=== PATIENT | male | born 1970 | race American Indian/Alaskan Native ===

== ENCOUNTER 2018-07-11 08:21 | Emergency (ER) | payer SELFPAY ==
[2018-07-11 08:29] VITALS: BP 177/75
[2018-07-11] MEDS ORDERED: NORCO 5/325 PO ONE (09:48)
--- NOTE | 2018-07-11 10:37 | Emergency Department Report ---
Abscess Boil HPI - HPI Chief Complaint: Skin/Abscess/Foreign Body Stated Complaint: RT BUTTOCK BOIL/PAIN Time Seen by Provider: 07/11/18 09:19 Duration: 5 Days Location: Sacral/Pilonidal Severity: Moderate History: Yes Pain, No Fever, No Purulent Drainage, No Numbness, No Foreign Body, No Previous History, No Insect Bite HPI: 47-year-old male presents to rectal pain for the past 6 days. Patient states that he felt a bump on his right buttock area has gotten bigger and has gotten difficult to sit down. Home Medications: Previous Rx's Medication Instructions Recorded Last Taken Type Clindamycin [Clindamycin CAP] 300 mg PO BID #14 cap 07/11/18 Unknown Rx HYDROcodone/ACETAMINOPHEN [[place] 1 each PO Q6H #10 tablet 07/11/18 Unknown Rx 5-325 Tablet] Sulfamethoxazole/Trimethoprim 1 each PO BID #14 tablet 07/11/18 Unknown Rx [Bactrim DS TAB] Allergies/Adverse Reactions: Allergies Allergy/AdvReac Type Severity Reaction Status Date / Time No Known Allergies Allergy Verified 07/11/18 08:24 ED Review of Systems ROS: Stated complaint: RT BUTTOCK BOIL/PAIN Other details as noted in HPI Comment: All other systems reviewed and negative ED Past Medical Hx - Medications Home Medications: Home Medications Medication Instructions Recorded Confirmed Last Taken Type Clindamycin [Clindamycin CAP] 300 mg PO BID #14 cap 07/11/18 Unknown Rx HYDROcodone/ACETAMINOPHEN [[place] 1 each PO Q6H #10 tablet 07/11/18 Unknown Rx 5-325 Tablet] Sulfamethoxazole/Trimethoprim 1 each PO BID #14 tablet 07/11/18 Unknown Rx [Bactrim DS TAB] ED Abscess Boil Physical Exam - Exam General: Vital signs noted. No distress. Alert and acting appropriately. Size: >5 cm Exam: Yes Tenderness, Yes Fluctuance, Yes Normal Neurologic Exam, Yes Normal Circulation, No Surrounding Cellulites/Erythema, No Lymphangitis, No Crepitation, No Heart Murmur I & D Note - I & D Note I & D Note: Patient positioned appropriately, 15cc lidocaine with/without epinephrine was used as a local anesthetic. #11 blade scalpal used for single incision. Additional local anesthetic injected into surrounding viable tissue prior to blunt dissection of loculated adhesions. Copius drainage of pus was suctioned. Wound packed with iodoform gauze. Procedure tolerated without complications. Wound dressed with sterile 4x4 guaze and paper tape. Pt tolerated procedure well. ED Course Vital Signs 07/11/18 08:27 Temperature 98.2 F Pulse Rate 74 Respiratory 20 Rate Blood Pressure 177/75 [Right] O2 Sat by Pulse 100 Oximetry Critical care attestation.: If time is entered above; I have spent that time in minutes in the direct care of this critically ill patient, excluding procedure time. ED Medical Decision Making - Medical Decision Making 47-year-old male presents with pilonidal abscess. See I& D notes. Patient tolerated procedure well. Discussed the patient's to return to the ED in 2-3 days for packing removal and wound check. Discussed to take antibiotics as prescribed. Vital signs are normal patient is in no acute distress ED Disposition Clinical Impression: Abscess, Pilonidal abscess Disposition: TO HOME OR SELFCARE Is pt being admited?: No Does the pt Need Aspirin: No Condition: Stable Instructions: Abscess Incision and Drainage (ED), Abscess (ED) Additional Instructions: Make sure to follow up with the primary care physician as discussed. Take all your medications as you've been prescribed. Return in 3 days for incision and drainage packing removal. If you have any worsening symptoms or develop new symptoms please return to ED immediately. Prescriptions: Sulfamethoxazole/Trimethoprim [Bactrim DS TAB] 1 each PO BID #14 tablet Clindamycin [Clindamycin CAP] 300 mg PO BID #14 cap HYDROcodone/ACETAMINOPHEN [[place] 5-325 Tablet] 1 each PO Q6H #10 tablet Referrals: [facility] MD FLORENCIO [Primary Care Provider] - 3-5 Days Forms: Accompanied Note, Work/School Release Form(ED) Time of Disposition: 12:03
[2018-07-11] MEDS ORDERED: XYLOCAINE 1% 20 mL INFILTRATI NR (10:45)
== END 2018-07-11 12:28 | disposition home or self-care (01) ==
LOC: ED 08:21
DX: L05.01 Pilonidal cyst with abscess (principal)
CPT/HCPCS: 99282

== ENCOUNTER 2018-07-14 12:42 | Emergency (ER) | payer SELFPAY ==
[2018-07-14 12:49] VITALS: BP 138/87
--- NOTE | 2018-07-14 13:40 | Emergency Department Report ---
Blank Doc - Documentation Documentation: 47 y/o male comes in today for wound recheck. Wound in on patient gluteus. No fevers.
--- NOTE | 2018-07-14 15:03 | Emergency Department Report ---
Suture/Staple Removal - [facility] Chief Complaint: Laceration/Recheck/Suture Stated Complaint: FOLLOW UP Time Seen by Provider: 07/14/18 14:39 When Sutures or [place] Placed: 3 Wound Location: pilonidal,right buttocks check ED Review of Systems ROS: Stated complaint: FOLLOW UP Other details as noted in HPI Comment: All other systems reviewed and negative ED Past Medical Hx - Past Medical History Hx Diabetes: Yes - Surgical History Past Surgical History?: Yes Hx Open Heart Surgery: Yes - Social History Smoking Status: Current Some Day Smoker Substance Use Type: None - Medications Home Medications: Home Medications Medication Instructions Recorded Confirmed Last Taken Type HYDROcodone/ACETAMINOPHEN [[place] 1 each PO Q6H #10 tablet 07/11/18 Unknown Rx 5-325 Tablet] Clindamycin [Clindamycin CAP] 300 mg PO BID #14 cap 07/14/18 Unknown Rx Ibuprofen [Motrin] 800 mg PO Q8HR #30 tablet 07/14/18 Unknown Rx Sulfamethoxazole/Trimethoprim 1 each PO BID #14 tablet 07/14/18 Unknown Rx [Bactrim DS TAB] Suture Removal Exam - Exam General: Vital signs noted. No distress. Alert and acting appropriately. Wound: Yes Tenderness, No Pathologic Erythema, No Drainage, No Pus, No Wound Dehiscence Other Systems: All other systems reviewed and are unremarkable. ED Course Vital Signs 07/14/18 12:47 Temperature 97.9 F Pulse Rate 74 Respiratory 18 Rate Blood Pressure 138/87 O2 Sat by Pulse 99 Oximetry ED Recheck MDM - Differential Diagnosis Wound Recheck - Medical Decision Making 47-year-old male presents with wound check and packing removal. Packing was removed without any problems. Discussed the patient's taken his antibiotics. Patient states he was unable to pick it up and needs another copy of his prescriptions. Follow-up with primary care physician discussed. wound looks well, healing appropriately. Critical care attestation.: If time is entered above; I have spent that time in minutes in the direct care of this critically ill patient, excluding procedure time. ED Disposition Clinical Impression: Wound check, abscess Disposition: DC-[id number] TO HOME OR SELFCARE Is pt being admited?: No Does the pt Need Aspirin: No Condition: Stable Instructions: Acute Wound Care (ED) Additional Instructions: DischargeMake sure to follow up with the primary care physician as discussed. Take all your medications as you've been prescribed. If you have any worsening symptoms or develop new symptoms please return to ED immediately. Prescriptions: Sulfamethoxazole/Trimethoprim [Bactrim DS TAB] 1 each PO BID #14 tablet Clindamycin [Clindamycin CAP] 300 mg PO BID #14 cap Ibuprofen [Motrin] 800 mg PO Q8HR #30 tablet Referrals: [facility] [Outside] - 3-5 Days [facility] [Outside] - 3-5 Days Forms: Work/School Release Form(ED) Time of Disposition: 15:03
== END 2018-07-14 15:30 | disposition home or self-care (01) ==
LOC: ED 12:42
DX: Z48.00 Encounter for change or removal of nonsurgical wound dressing (principal); T14.8XXD Other injury of unspecified body region, subsequent encounter

== ENCOUNTER 2020-07-11 19:37 | Emergency (ER) | payer SELFPAY ==
[2020-07-11 22:46] VITALS: BP 185/97
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
== END 2020-07-11 23:45 | disposition home or self-care (01) ==
LOC: ED 19:37
DX: M54.2 Cervicalgia (principal); F17.200 Nicotine dependence, unspecified, uncomplicated; E11.9 Type 2 diabetes mellitus without complications; Z98.890 Other specified postprocedural states; Z79.899 Other long term (current) drug therapy; Y04.8XXA Assault by other bodily force, initial encounter; Y93.89 Activity, other specified; Y92.89 Other specified places as the place of occurrence of the external cause; Y99.8 Other external cause status
CPT/HCPCS: 70490